=== PATIENT | male | born 1945 | race Caucasian/White ===

== ENCOUNTER 2024-05-15 13:59 | Emergency (ER) | payer OTHER, SELFPAY ==
[2024-05-15 14:23] VITALS: BP 151/102
[2024-05-15 15:03] LABS: % Basophils 0.5 % (0-2); % Eosinophils 1.1 % (0-6); % Immature Granulocytes 0.2 % (0-0.5); % Lymphocytes 22.1 % (20.5-51.1); % Monocytes 7.7 % (1.7-9.3); % Neutrophils 68.4 % (42.2-75.2); Absolute Basophils 0.1 10^3/uL (0-0.2); Absolute Eosinophils 0.1 10^3/uL (0-0.7); Absolute Lymphocytes 2.2 10^3/uL (1.2-3.4); Absolute Monocytes 0.8 10^3/uL (0.1-0.6); Absolute Neutrophils 6.9 10^3/uL (1.4-6.5); Hematocrit 39.1 % (39.0-52.0); Hemoglobin 13.6 g/dL (13.0-18.0); Mean Corp Hgb Conc. 34.8 g/dL (33.0-37.0); Mean Corpuscular Hgb 28.3 pg (27.0-31.0); Mean Corpuscular Volume 81.3 fL (80.0-94.0); Mean Platelet Volume 10.7 fL (7.4-10.4); Nucleated Red Blood Cells % 0 % (-); Platelet Count 248 10^3/uL (130-400); Red Blood Cell Count 4.81 10^6/uL (4.70-6.10); White Blood Cell Count 10.1 10^3/uL (4.8-10.8)
[2024-05-15 15:14] LABS: ALT (SGPT) 17 U/L (0-50); Albumin 4.4 g/dl (3.5-5.0); Alkaline Phosphatase 93 U/L (38-126); Blood Urea Nitrogen 25 mg/dl (9-20); Calcium 10.9 mg/dl (8.4-10.2); Carbon Dioxide 28 mmol/L (22-30); Chloride 94 mmol/L (98-107); Glucose 110 mg/dl (70-99); Lipase 49 U/L (23-300); Potassium 4.6 mmol/L (3.5-5.1); Sodium 133 mmol/L (135-145); Total Bilirubin 2.4 mg/dl (0.2-1.3); Total Protein 7.4 g/dl (6.3-8.2); eGFR 47.65
[2024-05-15 15:27] LABS: Troponin I 0.016 ng/ml
[2024-05-15 16:08] LABS: AST (SGOT) 27 U/L (17-59)
[2024-05-15 16:20] VITALS: BP 214/93
[2024-05-15] MEDS: NSS 1000 IV (20:01)
[2024-05-15] MEDS: MAALOX 50 PO (20:01)
[2024-05-15] MEDS: PEPCID 20 MG IV (20:03)
--- NOTE | 2024-05-15 20:11 | ED.GENMED ---
History of Present Illness
General
Chief Complaint: Abdominal Symptoms
Source: patient
Time Seen by Provider: 05/15/24 19:15
History of Present Illness
History of Present Illness:
78-year-old male with past medical history of hypertension presents to the emergency department for evaluation of epigastric abdominal pain radiating into the lower part of his chest that began around 1 week ago, symptoms initially started as nausea
vomiting and diarrhea (was not having the epigastric abdominal pain at that time and this developed after the nausea vomiting diarrhea resolved) but the pain in the upper abdomen remains prompting him to come to the ER today. Patient was at the [place]
earlier and was recommended come to the ER for further evaluation. He denies any other associated presently including shortness of breath, palpitations, diaphoresis, exertional dyspnea, back or flank pain, urinary symptoms or bowel changes.
Patient denies any recent travel, known sick contacts. Family history is negative for any cardiac disease. Social history was noted for using chewing tobacco.
Past History
Past History
ED Past Medical History: HTN
ED Past Surgical History: None
Social History
Tobacco: Other (Chewing tobacco)
Alcohol: None
Drug: None
Personal:
Living: with family
Review of Systems
Review of Systems
All Other Systems: ROS reviewed and negative except as documented in HPI and ROS
Phy Exam
Physical Exam
Physical Exam:
GENERAL: Alert , in no apparent distress
EYE: clear conjunctiva b/l
HEAD: NCAT
ENT: o/p clr, mmm.
CARDIAC: Regular rate and rhythm .
LUNGS: Clear breath sounds bilaterally, no acute respiratory distress, no wheezes/rales/rhonchi
ABDOMEN: Soft, reproducible epigastric pain, no r/g, no cvat, negative Aguilar sign, no tenderness at McBurney's point
NEUROLOGICAL: Alert and oriented
SKIN: Warm and dry, skin intact.
MUSCULOSKELETAL: No edema, well perfused.
PSYCH: Normal and appropriate interaction.
Scores
Heart Failure Risk
Heart Failure Risk Score: Not Applicable
Heart Score for Chest Pain Patients
STEMI patient?: No
History: Moderately Suspicious
ECG: Normal
Age: >/= 65 years
Risk Factors: 1 or 2 Risk Factors
Troponin: </= Normal Limit
Heart Score for Chest Pain Patients: 4
Heart Score Risk: 20.3% MACE over next 6 weeks
Withdrawal Assessment of Alcohol
Withdrawal Assessment Completed?: Not applicable
Course
Orders/Labs/Results
Orders:
Orders
05/15/24 14:25
ECG [Electrocardiogram (*1)] Urgent
Reason for Study: Abdominal Pain
05/15/24 14:26
EKG- Treatment ONCE
05/15/24 14:45
Complete Blood Count/With Diff Urgent
Comprehensive Metabolic Panel Urgent
Lipase Urgent
Troponin I Urgent
05/15/24 19:17
Electrocardiogram (*1) Urgent
Reason for Study: Abdominal Pain
EKG- Treatment ONCE
05/15/24 19:25
CT Abd/pelvis W Iv Cont Urgent
Comment:
Reason For Exam: epigastric pain radiating into lower chest
0.9% Sodium Chloride 1000 ml [Nss] 1,000 ml IV BOLUS
Famotidine [Pepcid] 20 mg IV NOW STA
Mag Hydrox/Al Hydrox/Simeth [Maalox] 30 ml Phenobarb/Hyoscy/Atropine/Scop [] 10 ml Viscous Lidocaine 2% [Xylocaine Viscous Cup] 10 ml PO NOW
05/15/24 19:48
Mag Hydrox/Al Hydrox/Simeth [Maalox] 30 ml .ROUTE .STK-MED ONE
Phenobarb/Hyoscy/Atropine/Scop [] 10 ml .ROUTE .STK-MED ONE
Viscous Lidocaine 2% [Xylocaine Viscous Cup] 15 ml .ROUTE .STK-MED ONE
05/15/24 20:06
Troponin I Urgent
05/15/24 21:41
Pantoprazole [Protonix] 40 mg .ROUTE .STK-MED ONE
05/15/24 21:43
Pantoprazole [Protonix] 40 mg PO NOW STA
Abnormal Lab Results
05/15/24
14:45
MPV 10.7 H fL
(7.4-10.4)
Absolute Neuts (auto) 6.9 H 10^3/uL
(1.4-6.5)
Absolute Monos (auto) 0.8 H 10^3/uL
(0.1-0.6)
Sodium 133 L mmol/L
(135-145)
Chloride 94 L mmol/L
(98-107)
BUN 25 H mg/dl
(9-20)
Creatinine 1.5 H mg/dL
(0.7-1.3)
Glucose 110 H mg/dl
(70-99)
Calcium 10.9 H mg/dl
(8.4-10.2)
Total Bilirubin 2.4 H mg/dl
(0.2-1.3)
05/15/24 14:45
05/15/24 14:45
Vital Signs
Initial and Last Documented VS:
Initial Vital Signs
Temp Pulse Resp BP Pulse Ox
98.1 F 74 20 151/102 98
05/15/24 14:23 05/15/24 14:23 05/15/24 14:23 05/15/24 14:23 05/15/24 14:23
Last Documented Vital Signs
Temp Pulse Resp BP Pulse Ox
98.1 F 65 18 150/90 94
05/15/24 16:20 05/15/24 21:00 05/15/24 21:00 05/15/24 21:00 05/15/24 21:00
MDM/Problems Addressed
Differential Diagnosis Includes:
GERD, gastritis, peptic ulcer disease, cholecystitis, atypical ACS presentation, dissection, PE, pancreatitis
MDM/Problems Addressed:
78-year-old male presenting the ER for evaluation of epigastric abdominal pain has been ongoing for about 1 week, radiating towards the chest with constant symptoms. Patient found to be significantly hypertensive here. Labs initiated in triage do
show a mild acute kidney injury. Patient states he is unsure as to if he has not had any kidney issues in the past. This could be potentially related to recent GI illness. Initial troponin is within normal limits however nonnegative. Will repeat
a troponin and EKG. CT of the abdomen and pelvis ordered. I repeated patient's blood pressure myself which was 180/88. Will continue to trend this.
Chronic conditions affecting care: HTN
Acute Exacerbation and/or Progression of Chronic Illness: HTN
*Radiology
Radiology exam reviewed: radiology read reviewed
*Pulse Oximetry
Patient hypoxic: no
*EKG
Heart Rate: 54
Rate: bradycardiac
Rhythm: sinus
Ischemia: no ischemia
*Piano Case Maker Interpretation
Rate: bradycardiac
Rhythm: sinus
*Critical Care Note
Total Time (30-74mins, 75-104mins- exclusive of procedures): Not Applicable
Patient Management
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
Escalation/DeEscalation of care consider admission/obs:
Patient CT scan shows an acute peptic ulcer with a 1.7 mm ulcer arising from the duodenal bulb surrounded by inflammatory changes. Other chronic findings noted and reviewed with the patient and spouse. Due to the acute finding as well as combined
with patient's history I do suspect this is the most likely cause for symptoms. I reviewed the history and findings with on-call GI physician, Dr. Pineda, with plans to initiate treatment with Protonix 40 mg twice daily and Carafate 4 times daily as
needed for symptoms. Soft mechanical diet and brat diet advised. Information was provided to GI to help expedite follow-up visit as an outpatient where patient will likely need EGD performed. Patient will follow-up as necessary. Due to some of
the chronic findings I also recommended patient follow-up with cardiology. Aware of return precautions to the ER. Patient was also encouraged to avoid any NSAIDs although he does note he usually does not take any of these types of medications.
ED Attending Note
-
Portions of this chart may have been created with voice recognition software.� Occasional wrong word or��sound alike� substitutions may have occurred due to the inherent limitations of voice recognition software.
Discharge Plan
Departure
Patient Disposition: Home (Routine Discharge)
Date of Disposition: 05/15/24
Time of Disposition: 21:36
Patient with high blood pressure during this ER visit?: Yes
Discharge Problem:
Peptic ulcer disease
Instructions: Peptic ulcers
Prescriptions:
New
pantoprazole [Protonix] 40 mg tablet,delayed release (DR/EC)
40 mg PO BID Qty: 180 0RF
sucralfate 100 mg/mL suspension
10 ml PO QID PRN (Reason: abdominal pain) Qty: 1000 0RF
No Action
cephalexin 500 MG capsule
500 mg PO QID Qty: 39 0RF
Referrals:
Kecia Pineda MD [Active] - (GI - the office will contact you for appointment)
NONE,* [Active] -
Interventions
Interventions:
*Risk Screen - Suicide Last Done: 05/15/24 22:15
*General Assessment Last Done: 05/15/24 14:23
*Neglect/Abuse Screening Last Done: 05/15/24 22:15
ED- Fall Risk Assessment Last Done: 05/15/24 22:15
*ED COVID-19 Vaccine History Last Done: 05/15/24 20:14
*Nursing Disposition Last Done: 05/15/24 22:15
XT-Jcfpbc-Fdozusttlb Assessment Last Done: 05/15/24 22:15
Discharge Date and Time
Discharge Date/Time: 05/15/24 22:15
Print Language: BOTSWANAN
[2024-05-15 20:13] VITALS: BP 170/92
[2024-05-15 20:15] VITALS: BMI 26.9
[2024-05-15 20:54] LABS: Troponin I 0.016 ng/ml
[2024-05-15 21:00] VITALS: BP 150/90
[2024-05-15] MEDS: PROTONIX 40 MG PO (21:45)
== END 2024-05-15 22:15 | disposition home or self-care (01) ==
LOC: EMR 13:59
PROVIDERS: Physician Assistant; Physician Assistant Medical; EMERGENCY PHYSICIAN Emergency Medicine; FAMILY PHYSICIAN Nurse Practitioner Adult Health
DX: K27.9 Peptic ulcer, site unspecified, unspecified as acute or chronic, without hemorrhage or perforation (principal); I10 Essential (primary) hypertension
CPT/HCPCS: 99285; 96374; 96361; 74177; 80053; 83690; 84484; 85025; 93005; Q9967

== ENCOUNTER 2024-09-26 02:19 | Emergency (ER) | payer OTHER, MEDICARE, SELFPAY ==
[2024-09-26 02:23] VITALS: BP 152/81
[2024-09-26 02:52] LABS: % Basophils 0.6 % (0-2); % Eosinophils 6.9 % (0-6); % Immature Granulocytes 0.1 % (0-0.5); % Lymphocytes 31.5 % (20.5-51.1); % Neutrophils 51.9 % (42.2-75.2); Absolute Basophils 0.1 10^3/uL (0-0.2); Absolute Eosinophils 0.7 10^3/uL (0-0.7); Absolute Monocytes 0.8 10^3/uL (0.1-0.6); Absolute Neutrophils 4.9 10^3/uL (1.4-6.5); Hematocrit 34.6 % (39.0-52.0); Hemoglobin 11.5 g/dL (13.0-18.0); Mean Corp Hgb Conc. 33.2 g/dL (33.0-37.0); Mean Corpuscular Hgb 28.6 pg (27.0-31.0); Mean Corpuscular Volume 86.1 fL (80.0-94.0); Nucleated Red Blood Cells % 0 % (-); Platelet Count 190 10^3/uL (130-400); Red Blood Cell Count 4.02 10^6/uL (4.70-6.10); Red Cell Dist. Width 13.9 % (11.5-14.5); White Blood Cell Count 9.4 10^3/uL (4.8-10.8)
[2024-09-26 03:17] LABS: ALT (SGPT) 33 U/L (0-50); AST (SGOT) 27 U/L (17-59); Albumin 4.1 g/dl (3.5-5.0); Alkaline Phosphatase 87 U/L (38-126); Blood Urea Nitrogen 33 mg/dl (9-20); Carbon Dioxide 26 mmol/L (22-30); Chloride 106 mmol/L (98-107); Glucose 105 mg/dl (70-99); Potassium 4.9 mmol/L (3.5-5.1); Sodium 138 mmol/L (135-145); Total Bilirubin 0.8 mg/dl (0.2-1.3); Total Protein 6.7 g/dl (6.3-8.2); eGFR 51.77
[2024-09-26 04:23] VITALS: BMI 26.9
--- NOTE | 2024-09-26 04:24 | EDRN ---
Pt says he cannot urinate. Pt has been dribbling x 4 days and feels pain and pressure. Pt unable to explain what prompted him to come to ED now. No fever/chills/cough, cp, sob, abd pain, n/v/d/c, flank pain. Pt released 'a little' urine 10-15
minutes ago. Pt adds he went to self care in [place] yesterday, gave a urine specimen and was told everything was fine.
[2024-09-26 04:28] VITALS: BP 133/88
[2024-09-26 05:39] LABS: Urine Albumin Negative (Neg - Trace); Urine Bilirubin Negative (Negative); Urine Character Clear (Clear); Urine Color Yellow; Urine Glucose Negative (Negative); Urine Ketone Negative (Negative); Urine Leukocyte Negative (Negative); Urine Nitrite Negative (Negative); Urine Occult Blood Negative (Negative); Urine Urobilinogen Negative (Neg - 1+)
--- NOTE | 2024-09-26 06:57 | ED.GENMED ---
History of Present Illness
General
Chief Complaint: Urinary Symptoms
Source: patient
Exam Limitations: none
Time Seen by Provider: 09/26/24 06:46
History of Present Illness
History of Present Illness:
See MDM
Past History
Past History
ED Past Medical History: HTN and Other (BPH)
ED Past Surgical History: None
Social History
Tobacco: Other (Chewing tobacco)
Alcohol: None
Drug: None
Personal:
Living: with family
Phy Exam
Physical Exam
Physical Exam:
See MDM
Course
Orders/Labs/Results
Orders:
Orders
09/26/24 02:42
CBC/With Diff [Complete Blood Count/With Diff] Urgent
Comprehensive Metabolic Panel Urgent
09/26/24 04:51
Urinalysis Reflex To Culture Urgent
Date Specimen was Collected: 09/26/24
Time Specimen was Collected: 02:36
09/26/24 06:56
Straight cath- Treatment ONCE
Tamsulosin [Flomax] 0.4 mg PO NOW STA
Abnormal Lab Results
09/26/24
02:42
RBC 4.02 L 10^6/uL
(4.70-6.10)
Hgb 11.5 L g/dL
(13.0-18.0)
Hct 34.6 L %
(39.0-52.0)
MPV 11.0 H fL
(7.4-10.4)
Absolute Monos (auto) 0.8 H 10^3/uL
(0.1-0.6)
Eosinophils % 6.9 H %
(0-6)
BUN 33 H mg/dl
(9-20)
Creatinine 1.4 H mg/dL
(0.7-1.3)
Glucose 105 H mg/dl
(70-99)
09/26/24 02:42
09/26/24 02:42
Vital Signs
Initial and Last Documented VS:
Initial Vital Signs
Temp Pulse Resp BP Pulse Ox
97.5 F 63 16 152/81 99
09/26/24 02:23 09/26/24 02:23 09/26/24 02:23 09/26/24 02:23 09/26/24 02:23
Last Documented Vital Signs
Temp Pulse Resp BP Pulse Ox
97.5 F 49 14 133/88 99
09/26/24 02:23 09/26/24 04:28 09/26/24 04:28 09/26/24 04:28 09/26/24 04:28
MDM/Problems Addressed
Differential Diagnosis Includes:
HPI and MDM Narrative:
78-year-old male presenting with discomfort while trying to urinate. Over the past week or so, patient states he has trouble urinating. He has a poor flow and it appears to dribble. He is on Flomax routinely. He called his primary care physician
who instructed him to double up his Flomax. He states he did this for several days and it did not help. Because this was towards his prescription, he has been out of his Flomax for the past 4 days or so.
Urinalysis negative for infection. I spoke to the treating nurse who stated that his prevoid bladder scan showed about 380 mL. Postvoid showed about 270 mL. This does indicate that he is able to urinate. I gave him the option of Yusuf catheter
given his discomfort versus straight cath and restarting his Flomax. Patient opted for straight cath and will restart his Flomax and discussed follow-up with urology
Physical exam
General: Well appearing and non-toxic
HEENT: protecting airway
Neck: appears supple
CV: No evidence of cyanosis
Resp: No accessory muscle use
Abd: Non-distended. Soft and nontender
Extremities: No deformities
Neuro: alert
Psych: Normal affect
Skin: Intact
Problems Addressed including Acute and Chronic Conditions affecting care:
1. Urinary retention
Acuity: acute
Prognosis: stable
Details: Will restart Flomax and straight cath
Differential Diagnosis (but not limited to): UTI, BPH, urinary retention
Testing considered: CT A/P
Drug therapy (if applicable): OTC meds, please see d/c instruction regarding Rx drugs
Amount and/or Complexity of Data Reviewed
Clinical info obtained from: Patient
External data reviewed: N/A
Labs I independently reviewed (but not limited to): Urinalysis
Radiology: N/A
Pulse Ox: not hypoxic
EKG independently reviewed: N/A
Funeral Planning Counselor: N/A
Critical Care: N/A
Risk of Complication:
Social Determinants of health: Good social support
Discussed with other providers: N/A
Escalation of Care includes Admit/Obs: After being observed in the Emergency Department, pt stable for discharge.
Occasional wrong word or 'sound a like' substitutions may have occurred due to the inherent limitations of voice recognition software. Read the chart carefully and recognize, using context, where substitutions have occurred.
*Critical Care Note
Total Time (30-74mins, 75-104mins- exclusive of procedures): Not Applicable
ED Attending Note
-
Portions of this chart may have been created with voice recognition software.� Occasional wrong word or��sound alike� substitutions may have occurred due to the inherent limitations of voice recognition software.
Discharge Plan
Departure
Patient Disposition: Home (Routine Discharge)
Date of Disposition: 09/26/24
Time of Disposition: 07:03
Patient with high blood pressure during this ER visit?: No
Discharge Problem:
Acute urinary retention
Instructions: Urinary retention
Prescriptions:
New
tamsulosin [Flomax] 0.4 mg capsule
0.4 mg PO DAILY Qty: 30 0RF
Referrals:
Serafin Liang Jr., MD [Active] -
UNKNOWN - PT DOES,NOT KNOW [Family Provider] -
Activity Restrictions/Additional Instructions:
Please return for any worsening symptoms.
You may return at any time if you have further concerns.
Please follow up with your doctor at the first available appointment, preferably this week.
Please make an appointment to see the urologist at the first available appointment.
Thank you for choosing [facility].
Interventions
Interventions:
*Risk Screen - Suicide Last Done: 09/26/24 02:23
*General Assessment Last Done: 09/26/24 02:23
*Neglect/Abuse Screening Last Done: 09/26/24 02:23
*ED- Fall Risk Assessment Last Done: 09/26/24 02:23
*ED COVID-19 Vaccine History Last Done: 09/26/24 02:23
ED-Male Genitourinary Assessment Last Done: 09/26/24 04:37
Discharge Date and Time
Print Language: [place]
[2024-09-26] MEDS: FLOMAX 0.4 MG PO (07:43)
[2024-09-26 07:50] VITALS: BP 126/77
== END 2024-09-26 07:50 | disposition home or self-care (01) ==
LOC: EMR 02:19
PROVIDERS: Emergency Medicine; EMERGENCY PHYSICIAN Student in an Organized Health Care Education/Training Program
DX: R33.9 Retention of urine, unspecified (principal)
CPT/HCPCS: 99283; 51798; 51701; 80053; 81003; 85025

== ENCOUNTER 2025-03-04 11:13 | Emergency (ER) | payer OTHER, MEDICARE, SELFPAY ==
[2025-03-04 11:14] VITALS: BMI 27.5
[2025-03-04 11:22] VITALS: BP 161/81
--- NOTE | 2025-03-04 12:21 | ED.MUSCINJ ---
HPI-Injury
General
Chief Complaint: Fall
Source: patient
Exam Limitations: none
Time Seen by Provider: 03/04/25 12:03
History of Present Illness-Injury
Initial Injury comments:
79-year-old male with history of hypertension hyperlipidemia and enlarged prostate who is quite [place] presents complaining of persistent numbness and tingling sensation to the lower extremities from the hips down. This started
after a fall he sustained about a week ago. He also notes he had a tick bite to the back of his left thigh. He denies fevers. He also notes new onset tingling to the right hand. No headache. No head trauma. No neck pain. He denies a rash. He
does endorse that he had a flu vaccine maybe a month ago.
Past History
Past History
ED Past Medical History: HTN and Other (BPH)
ED Past Surgical History: None
Social History
Tobacco: Other (Chewing tobacco)
Alcohol: None
Drug: None
Personal:
Living: with family
Phy Exam
Physical Exam
Physical Exam:
General: Well appearing male NAD
HEENT: NC/AT
Heart: RRR, no murmurs
Lungs: CTA bilaterally
neuro: alert and oriented. ambulatory. Good strength to the lower extremities. Bilateral patellar reflexes 2+ bilateral Achilles reflexes 1+. Good sensation to lower extremities bilaterally
Skin is warm no rash although there is a tick bite to the left posterior thigh
Injury Course
Orders/Labs/Results
Orders:
Orders
03/04/25 12:18
CT Lumbar Spine W/o Iv Contras Urgent
Comment:
Reason For Exam: fall, back pain, paresthesias
CR Knee- Right 4 Or More View* Urgent
Comment:
Reason For Exam: fall
CR Pelvis - 1 Or 2 Views Urgent
Comment:
Reason For Exam: fall
03/04/25 12:36
Complete Blood Count/With Diff Urgent
Comprehensive Metabolic Panel Urgent
Lyme Progressive Urgent
Abnormal Lab Results
03/04/25
12:36
RBC 4.42 L 10^6/uL
(4.70-6.10)
Hgb 12.4 L g/dL
(13.0-18.0)
Hct 37.2 L %
(39.0-52.0)
MPV 10.7 H fL
(7.4-10.4)
Absolute Monos (auto) 0.7 H 10^3/uL
(0.1-0.6)
Eosinophils % 6.2 H %
(0-6)
Sodium 134 L mmol/L
(135-145)
BUN 28 H mg/dl
(9-20)
Glucose 100 H mg/dl
(70-99)
Total Bilirubin 1.8 H mg/dl
(0.2-1.3)
03/04/25 12:36
03/04/25 12:36
MDM/Problems Addressed
Differential Diagnosis Includes:
Patient with bilateral lower extremity paresthesias after a fall he sustained 1 week ago. Consider radiculopathy versus spine fracture. He also notes right hand numbness although neurologically he has a normal exam. He endorses a flu vaccine
within the past month or so. Will obtain CT of the lumbar spine x-ray of the pelvis and right knee check Lyme test and basic labs.
*Pulse Oximetry
SaO2: 97
Oxygen Mode of Delivery: Room air
Patient hypoxic: no
*Critical Care Note
Total Time (30-74mins, 75-104mins- exclusive of procedures): Not Applicable
Update Note
Update Note:
CT lumbar spine demonstrates severe spinal stenosis without evidence of acute fracture. X-ray of the pelvis shows severely degenerative left hip x-ray of the right knee is negative for fracture. Upon further questioning patient does not feel that
he actually received the flu vaccine. Symptoms on exam more so with paresthesias but no weakness. No deficit in his reflexes. Discussed and offered lumbar puncture for further workup however he declined. Return precaution were given. Prescribed
steroids for the radiculopathy he has. He is ambulatory. There is no red flags to suggest cauda equina
ED Attending Note
-
Portions of this chart may have been created with voice recognition software.� Occasional wrong word or��sound alike� substitutions may have occurred due to the inherent limitations of voice recognition software.
Discharge Plan
Departure
Patient Disposition: Home (Routine Discharge)
Date of Disposition: 03/04/25
Time of Disposition: 15:15
Patient with high blood pressure during this ER visit?: No
Discharge Problem:
Spinal stenosis
Instructions: Lumbar spinal stenosis
Prescriptions:
New
prednisone 10 mg Tablet
See Rx Instructions .ROUTE .COMPLEX Qty: 30 0RF
Rx Instructions:
Take By Mouth:
40 mg daily x3 days, 30 mg daily x3 days,
20 mg daily x3 days, 10 mg daily x3 days.
No Action
tamsulosin [Flomax] 0.4 mg capsule
0.4 mg PO DAILY Qty: 30 0RF
Referrals:
Spencer Fontana CRNP [Family Provider]
Niranjan Obrien MD [Active, Orthopedics]
Activity Restrictions/Additional Instructions:
Use steroids as directed. return if worse otherwise follow-up with orthopedics
Interventions
Interventions:
*Risk Screen - Suicide Last Done: 03/04/25 11:22
*General Assessment Last Done: 03/04/25 11:22
*Neglect/Abuse Screening Last Done: 03/04/25 14:38
*ED- Fall Risk Assessment Last Done: 03/04/25 14:38
*ED COVID-19 Vaccine History Last Done: 03/04/25 11:22
*ED Influenza Vaccine History Last Done: 03/04/25 11:22
ED-Musculoskeletal Assessment Last Done: 03/04/25 14:38
ED- Neurological Assessment Last Done: 03/04/25 14:38
ED-Skin Assessment Last Done: 03/04/25 14:38
Discharge Date and Time
Print Language: DANISH
[2025-03-04 12:54] LABS: Hematocrit 37.2 % (39.0-52.0); Hemoglobin 12.4 g/dL (13.0-18.0); Mean Corp Hgb Conc. 33.3 g/dL (33.0-37.0); Mean Corpuscular Volume 84.2 fL (80.0-94.0); Nucleated Red Blood Cells % 0 % (-); Platelet Count 238 10^3/uL (130-400); Red Cell Dist. Width 13.3 % (11.5-14.5)
[2025-03-04 13:15] LABS: ALT (SGPT) 23 U/L (0-50); AST (SGOT) 27 U/L (17-59); Albumin 4.1 g/dl (3.5-5.0); Alkaline Phosphatase 80 U/L (38-126); Blood Urea Nitrogen 28 mg/dl (9-20); Calcium 9.2 mg/dl (8.4-10.2); Carbon Dioxide 26 mmol/L (22-30); Chloride 105 mmol/L (98-107); Glucose 100 mg/dl (70-99); Potassium 4.5 mmol/L (3.5-5.1); Sodium 134 mmol/L (135-145); Total Protein 7.6 g/dl (6.3-8.2); eGFR 56.23
[2025-03-04 15:37] VITALS: BP 159/97
[2025-03-04 15:44] VITALS: BP 159/97
== END 2025-03-04 15:46 | disposition home or self-care (01) ==
LOC: EMR 11:13
PROVIDERS: Physician Assistant; EMERGENCY PHYSICIAN Student in an Organized Health Care Education/Training Program; FAMILY PHYSICIAN Nurse Practitioner Adult Health
DX: M48.061 Spinal stenosis, lumbar region without neurogenic claudication (principal); I10 Essential (primary) hypertension; E78.5 Hyperlipidemia, unspecified; N40.0 Benign prostatic hyperplasia without lower urinary tract symptoms; M16.12 Unilateral primary osteoarthritis, left hip
CPT/HCPCS: 99284; 72131; 72170; 73564; 80053; 85025; 86618